=== PATIENT | female | born 2000 | race Caucasian/White ===

== ENCOUNTER 2024-11-13 14:42 | Inpatient (IN) | payer OTHER, SELFPAY ==
[2024-11-13] VITALS (79 sets, daily range): BP systolic 94–151; BP diastolic 47–122; PULSE 63–141; TEMP 36.8–37; O2SAT 94–100; BMI 28.0
[2024-11-13 16:00] LABS: Basophils Percent Auto 0.2 % (0.2-1.2); Eosinophils Absolute Auto 0.1 K/mm3 (0-0.3); Eosinophils Percent Auto 0.6 % (0-4.4); Hematocrit 32.8 % (37.0-47.0); Hemoglobin 11.5 g/dL (12.0-15.0); Immature Granulocyte Absolute 0.07 K/mm3 (0.00-0.031); Immature Granulocyte Percent A 0.6 % (0-0.5); Lymphocytes Absolute Auto 1.76 K/mm3 (0.9-3.2); Lymphocytes Percent Auto 14.1 % (18.3-44.2); Mean Corpuscular HGB Conc 35.1 g/dl (32-36); Mean Corpuscular Hemoglobin 30.6 pg (26-34); Mean Corpuscular Volume 87.2 fl (80-100); Mean Platelet Volume 11.5 fl (7.4-10.4); Monocytes Absolute Auto 1.1 K/mm3 (0.1-0.6); Monocytes Percent Auto 8.7 % (2.6-8.5); Neutrophils Absolute Auto 9.4 K/mm3 (1.3-6.7); Neutrophils Percent Auto 75.8 % (45.5-73.1); Platelet Count Result 180 k/mm3 (150-375); Red Blood Count 3.76 M/mm3 (4.2-5.4); Red Cell Distribution Width 13.2 % (11.5-14.5); White Blood Count 12.5 K/mm3 (4.5-10.0)
[2024-11-13 16:13] LABS: Alanine Aminotransferase 19 U/L (6-35); Albumin Level 3.4 g/dL (3.5-5.1); Alkaline Phosphatase 126 U/L (38-126); Anion Gap 7 mmol/L (4-12); Aspartate Amino Transferase 22 U/L (14-36); Bilirubin,Total 0.4 mg/dL (0.2-1.3); Blood Urea Nitrogen 7 mg/dL (7-17); Calcium 8.9 mg/dL (8.4-10.2); Carbon Dioxide 22 mmol/L (22-30); Chloride 106 mmol/L (98-107); Estimated Glomerular Filt Rate > 60; Glucose 76 mg/dL (65-110); Potassium 3.6 mmol/L (3.4-5.0); Sodium 135 mmol/L (137-145); Uric Acid 2.9 mg/dL (2.5-7.5)
[2024-11-13] MEDS: LACTATED RINGERS 1,000 ML 125 ML IV CONT ×2 (16:20→19:51)
[2024-11-13] MEDS: AMPICILLIN 2 GM/NS 100 ML 2 GM/100 ML BAG IVPB (16:21)
[2024-11-13 16:25] LABS: Rapid Plasma Reagin Non-Reactive (NonReactive)
--- NOTE | 2024-11-13 16:46 | LDADM ---
This patient, Eugenia Smith, was admitted to Labor/Delivery/Recovery 104 on 11/13/24 at 14:42. Plans for labor, pain management and were discussed with patient. Patient/family oriented to hospital policies and general routines including ID bracelet, bed and alarms, visiting hours, pain management, procedures, bathroom and other care routines, personal items, smoking policy, room service/diet and guest tray routines, security routines, and visiting hours. Patient/Family are encouraged to report perceived risks to care and to ask questions if they do not understand what they are told or what they should do. See OBIX for further documentation.
[2024-11-13 16:55] LABS: HIV 1/2 Ab P24 Ag Result Negative (Negative)
--- NOTE | 2024-11-13 17:08 | P.HP_ITS ---
H&P: HPI History of Present Illness Date/Time: 11/13/24 17:08 Chief Complaint: ruptured membranes at term Narrative: 24 year 1 para 0 last menstrual period was 02/15/2024, EDC is 11/21/2024 presents at 386 7th weeks gestation with spontaneous rupture prior to admission. appears unremarkable. She is negative for group B strep . her fluid is meconium stained Review of Systems Review of Systems: All systems reviewed & are unremarkable except as noted in HPI and below PMFSH Social History Social History Smoking status: Never smoker Second hand tobacco smoke exposure: No Substance use: never Do You Feel Safe in your Home?: Yes Lack of Transportation: No Lack of Food: Never True Current Housing: I Have Housing Concerned About Future Housing: No Difficulty Paying Gas/Electric Bills: No Difficulty Paying for Meds: No Currently Unemployed: No Education: High School Diploma/GED Difficulty w/ Childcare or Family Care: No Spiritual care concerns: No Meds Home Medications and Allergies Home Medications ?Medication ?Instructions ?Recorded ?Confirmed ?Type buspirone 5 mg tablet 5 mg PO ONCE 11/11/24 11/13/24 History sertraline 50 mg tablet (Zoloft) 50 mg PO DAILY 11/11/24 11/13/24 History Allergies Allergy/AdvReac Type Severity Reaction Status Date / Time ondansetron (From Zofran) Allergy Severe Anaphylaxis Verified 11/11/24 09:04 Vital Signs Vital Signs - 24 hr 11/13/24 16:01 11/13/24 16:30 Pulse Rate 84 81 Blood Pressure 147/88 H 147/96 H Exam Const: General: cooperative, healthy appearing and comfortable Nutritional Appearance: average body habitus Orientation/consciousness: oriented to person, oriented to place and oriented to time HENMT: Head: normal to inspection Resp: Effort & Inspection: normal respiratory effort Cardio: Rate: regular rate Rhythm: regular rhythm Heart sounds: S1 normal heart sound present and S2 normal heart sound present GI: Inspection: normal to inspection ( gravid soft uterus) : External Female Exam: normal external appearance Speculum Exam - Vagina: normal appearance of the vagina Speculum Exam - Cervix: normal appearance of the cervix ( cervix 2/50% with meconium-stained fluid. h eart tones reassuring) H&P: Results Labs Labs: Short CBC 11/13/24 Range/Units 15:43 WBC 12.5 H (4.5-10.0) K/mm3 Hgb 11.5 L (12.0-15.0) g/dL Hct 32.8 L (37.0-47.0) % Plt Count 180 (150-375) k/mm3 BMP 11/13/24 15:43 Sodium 135 L Potassium 3.6 Chloride 106 Carbon Dioxide 22 BUN 7 Creatinine 0.52 L Glucose 76 Calcium 8.9 Liver Function 11/13/24 Range/Units 15:43 Total Bilirubin 0.4 (0.2-1.3) mg/dL AST 22 (14-36) U/L ALT 19 (6-35) U/L Alkaline Phosphatase 126 (38-126) U/L Albumin 3.4 L (3.5-5.1) g/dL Assessment and Plan Assessment and plan (1) Term : Code(s): Z34.90 - Encounter for supervision of normal , unspecified, unspecified trimester Status: Acute (2) Spontaneous rupture of membranes: Status: Acute Plan spontaneous vaginal delivery is expected. She is an epidural candidate.
[2024-11-13] MEDS: OXYTOCIN 30 UNITS/NS 500 ML 30 UNITS/500 ML BAG IV CONT (17:16)
[2024-11-13 17:27] LABS: OBXCEM ROM Plus Positive (Negative)
[2024-11-13] MEDS: fentaNYL CITRATE INJ (*CRX) 100 MCG/2 ML VIAL 50 MCG IV PUSH (17:41)
--- NOTE | 2024-11-13 19:23 | WPDANESEPP ---
Anes - Eval Pre Procedure Procedure: labor pain managment Date/Time: 11/13/24 19:23 Surgeon: Brice Almodovar Preop Diagnosis: pain during labor Pre Op Diagnosis: ROM Patient Data Age: 24 Gender: F Height: 1.7 m Weight: 81.2 kg Last Vital Signs Temp 98.2 F 11/13/24 18:00 Pulse 85 11/13/24 18:31 BP 151/102 H 11/13/24 18:31 O2 Del Method Room Air 11/13/24 17:55 Allergies Allergy/AdvReac Type Severity Reaction Status Date / Time ondansetron (From Zofran) Allergy Severe Anaphylaxis Verified 11/11/24 09:04 Home Medications ?Medication ?Instructions ?Recorded ?Confirmed ?Type buspirone 5 mg tablet 5 mg PO ONCE 11/11/24 11/13/24 History sertraline 50 mg tablet (Zoloft) 50 mg PO DAILY 11/11/24 11/13/24 History Laboratory Tests 11/13/24 11/13/24 15:05 15:43 WBC 12.5 H K/mm3 (4.5-10.0) RBC 3.76 L M/mm3 (4.2-5.4) Hgb 11.5 L g/dL (12.0-15.0) Hct 32.8 L % (37.0-47.0) MCV 87.2 fl (80-100) MCH 30.6 pg (26-34) MCHC 35.1 g/dl (32-36) RDW 13.2 % (11.5-14.5) Plt Count 180 k/mm3 (150-375) MPV 11.5 H fl (7.4-10.4) Immature Gran % (Auto) 0.6 H % (0-0.5) Neut % (Auto) 75.8 H % (45.5-73.1) Lymph % (Auto) 14.1 L % (18.3-44.2) [place] % (Auto) 8.7 H % (2.6-8.5) Eos % (Auto) 0.6 % (0-4.4) Baso % (Auto) 0.2 % (0.2-1.2) Lymph # (Auto) 1.76 K/mm3 (0.9-3.2) [place] # (Auto) 1.1 H K/mm3 (0.1-0.6) Eos # (Auto) 0.1 K/mm3 (0-0.3) Baso # (Auto) 0.0 K/mm3 (0.0-0.1) Abs Immat Gran (auto) 0.07 H K/mm3 (0.00-0.031) Absolute Neuts (auto) 9.4 H K/mm3 (1.3-6.7) Absolute Nucleated RBC 0.000 K/mm3 (0.0-0.012) Nucleated RBC % 0.0 % (0.0-0.2) Sodium 135 L mmol/L (137-145) Potassium 3.6 mmol/L (3.4-5.0) Chloride 106 mmol/L (98-107) Carbon Dioxide 22 mmol/L (22-30) Anion Gap 7 mmol/L (4-12) BUN 7 mg/dL (7-17) Creatinine 0.52 L mg/dL (0.7-1.0) Estim Creat Clear Calc Not Reportable Estimated GFR > 60 (59 - ) Glucose 76 mg/dL (65-110) Uric Acid 2.9 mg/dL (2.5-7.5) Calcium 8.9 mg/dL (8.4-10.2) Total Bilirubin 0.4 mg/dL (0.2-1.3) AST 22 U/L (14-36) ALT 19 U/L (6-35) Alkaline Phosphatase 126 U/L (38-126) Total Protein 7.0 g/dL (6.3-8.2) Albumin 3.4 L g/dL (3.5-5.1) Membranes Rupture Rom plus positive (Negative) RPR Non-reactive (NonReactive) HIV 1&2 Ab/P24 Ag 4thGn Negative (Negative) Blood Type O Positive Antibody Screen Negative Patient hx anesthesia problems: none Family hx anesthesia problems: none Results Review: All pre-operative results and documents have been reviewed as part of the pre-operative evaluation. [facility] Past Medical History Medical History Bipolar 1 disorder Depression Anxiety Social History Social History Smoking status: Never smoker Second hand tobacco smoke exposure: No Substance use: never Do You Feel Safe in your Home?: Yes Lack of Transportation: No Lack of Food: Never True Current Housing: I Have Housing Concerned About Future Housing: No Difficulty Paying Gas/Electric Bills: No Difficulty Paying for Meds: No Currently Unemployed: No Education: High School Diploma/GED Difficulty w/ Childcare or Family Care: No Spiritual care concerns: No Exam Day of Procedure 11/13/24 19:23
[2024-11-13] MEDS: PROMETHAZINE HCL 25 MG/ML AMPUL 12.5 MG IV PUSH (19:36)
[2024-11-13] MEDS: AMPICILLIN 1 GM/NS 50 ML 1 GM/50 ML BAG IVPB (20:23)
[2024-11-14] VITALS (43 sets, daily range): BP systolic 111–185; BP diastolic 49–137; PULSE 68–162; RESP 16–18; TEMP 36.3–36.7; O2SAT 82–100
[2024-11-14] MEDS: AMPICILLIN 1 GM/NS 50 ML 1 GM/50 ML BAG IVPB (00:11)
--- NOTE | 2024-11-14 02:13 | P.PCNOB_ITS ---
OB - Vaginal Delivery Note Procedure Delivery date: 11/14/24 Induction method: None Delivery augmentation: Pitocin Delivery monitor: External FHT and External Uterine Route of delivery: Episiotomy description: None Laceration Description: Perineal - 1st Degree Delivery repair: vicryl Specimen: No Quantitative Blood Loss (ml): 62 Anesthesia type: Epidural Disposition: Floor Complications: No immediate complications Narrative: Admitted with spontaneous rupture membranes on 11/13/2024. Pitocin augmentation began she progressed an unremarkable 1st stage of labor with epidural anesthesia she pushed delivered head spontaneously in SARMAD position. Anterior posterior shoulder delivered spontaneously. Cord clamped x2 and cut infant warmer given Apgars of 8 [id number]. Cord blood was drawn. Placenta delivered intact spontaneously. Twenty of Pitocin placed IV to help firm the uterus. After inspecting lateral sidewall small midline sulcal tear was noted to did not extend a [id number] 0 Vicryl placed. QBL was 62cc. All sponge, needle, instrument counts were correct. [place] Baby Date of : 11/14/24 Time of : 02:02 Gestational Age by Date: 39 gender: Female presentation: vertex position: Left Occiput Anterior Placenta delivery description: Spontaneous Cord Vessel Description: 3 Vessels score one minute: 8 score five minutes: 9
--- NOTE | 2024-11-14 02:16 | P.DS_ITS ---
DS: Admitting Diagnosis Discharge Date 11/15/2024 Admitting Diagnosis Term DS: Discharge Diagnosis Discharge Diagnosis (1) Term : Code(s): Z34.90 - Encounter for supervision of normal , unspecified, unspecified trimester Status: Acute (2) Spontaneous rupture of membranes: Status: Acute DS: Summary Hospital Course Reason for hospitalization: patient was admitted on 11/13 24 with spontaneous rupture membranes and underwent spontaneous vaginal delivery at 2:02 a.m. on 09/28 Hospital Course: patient's hospital course unremarkable. She remained afebrile. She was up regular diet, ambulating, generally without. Time Spent with Patient Time attestation: Total time spent providing and/or coordinating discharge services: Exam Const: General: cooperative, healthy appearing and comfortable Nutritional Appearance: average body habitus Orientation/consciousness: oriented to person, oriented to place and oriented to time HENMT: Head: normal to inspection Resp: Effort & Inspection: normal respiratory effort Cardio: Rate: regular rate Rhythm: regular rhythm Heart sounds: S1 n ormal heart sound present and S2 normal heart sound present GI: Inspection: normal to inspection ( Fundus firm below umbilicus) DS: Data Data Completed and Pending Labs on day of discharge: Labs from last 24 hours 11/13/24 11/13/24 15:43 15:05 WBC 12.5 H RBC 3.76 L Hgb 11.5 L Hct 32.8 L MCV 87.2 MCH 30.6 MCHC 35.1 RDW 13.2 Plt Count 180 MPV 11.5 H Immature Gran % (Auto) 0.6 H Neut % (Auto) 75.8 H Lymph % (Auto) 14.1 L [place] % (Auto) 8.7 H Eos % (Auto) 0.6 Baso % (Auto) 0.2 Lymph # (Auto) 1.76 [place] # (Auto) 1.1 H Eos # (Auto) 0.1 Baso # (Auto) 0.0 Abs Immat Gran (auto) 0.07 H Absolute Neuts (auto) 9.4 H Absolute Nucleated RBC 0.000 Nucleated RBC % 0.0 Sodium 135 L Potassium 3.6 Chloride 106 Carbon Dioxide 22 Anion Gap 7 BUN 7 Creatinine 0.52 L Estim Creat Clear Calc Not Reportable Estimated GFR > 60 Glucose 76 Uric Acid 2.9 Calcium 8.9 Total Bilirubin 0.4 AST 22 ALT 19 Alkaline Phosphatase 126 Total Protein 7.0 Albumin 3.4 L Membranes Rupture Rom plus positive RPR Non-reactive HIV 1&2 Ab/P24 Ag 4thGn Negative Blood Type O Positive Antibody Screen Negative Discharge Plan Discharge Attending physician on discharge: Dominick Balbuena Discharging Clinician: Dominick Balbuena Activity: may shower, no straining, may drive after 2 weeks and pelvic rest Diet: heart healthy Wound Care Instructions: follow printed instructions Patient Language: Japanese Follow-up/Referrals: Dominick Balbuena MD [Physician] - Discharge Medications: No Action buspirone 5 mg tablet 5 mg PO ONCE sertraline [Zoloft] 50 mg tablet 50 mg PO DAILY Date of admission: 11/13/24 14:42 Primary Care Provider: PHYSICIAN NOT ON STAFF,NONSTAFF Admitting Provider: Luan Morales Attending physician on admission: Luan Morales Condition: Stable
[2024-11-14] MEDS: OXYTOCIN 30 UNITS/NS 500 ML 30 UNITS/500 ML BAG 125 UNITS IV CONT (02:34)
[2024-11-14] MEDS: IBUPROFEN 600 MG TABLET PO ×3 (04:14→18:50)
[2024-11-14] MEDS: ACETAMINOPHEN 325 MG TABLET 650 MG PO ×3 (04:14→18:51)
--- NOTE | 2024-11-14 07:21 | WPDANLDPN2 ---
Anes-Prog Note L&D Date/Time: 11/14/24 07:21 Comfortable throughout: labor and delivery Neuraxial method: epidural Epidural/Spinal procedure site: clean & non-tender Neuro status: Neuro function grossly intact. Cardiovascular status: normal Respiratory status: normal Airway patency: baseline Mental status: baseline Post-Op hydration status: normal Vital Signs: Last Vital Signs Temp 98.4 F 11/13/24 23:30 Pulse 72 11/14/24 07:15 BP 125/75 11/14/24 07:15 Pulse Ox 96 11/14/24 02:01 O2 Del Method Room Air 11/13/24 17:55 Pain score (VAS): 0 I/O: Intake & Output 11/13/24 11/13/24 11/14/24 15:59 23:59 07:59 Intake Total 1150 500 Output Total 300 162 Balance 850 338 Post-procedural complaints: none Patient feedback: Patient satisfied with anesthetic care.
--- NOTE | 2024-11-14 10:10 | PC.NURSE ---
Patient transferred to post room #287 per wheelchair from labor and delivery. Support person present. Oriented to unit, room, information board, rooming in, admission packet and security measures. Patient verbalizes understanding.
--- NOTE | 2024-11-14 10:40 | PC.NURSE ---
Breast pump provided due to [separation, infnat in level 2]. Instructions given on cleaning, care, usage, that there should be no pain, pumping schedule for milk production, collection, and storage of human milk. Patient was assessed for correct placement, flange size (24 mm), to pump for comfort and nipple stretching/stimulation for adequate milk production every 3 hours (8 times in 24 hours).?Mother voiced understanding of the education shared along with mom/baby guide and the pump measurement, flange fit handout for additional resource information. Reported to the Primary RN.
[2024-11-14] MEDS: MULTIVIT/MIN/PREN/FOL AC/IRON TABLET 1 TAB PO (11:31)
[2024-11-14] MEDS: LANOLIN (LANSINOH) 7.5 GM CREAM 1 APPLIC TOPICAL (11:32)
--- NOTE | 2024-11-14 16:35 | PC.NURSE ---
Checked with mother about how pumping was going. She was able to go to the level 2 nursery and breastfeed baby at the last feeding time. Mom has a lot of doubt about her ability to produce adequate milk. Educated on milk production, frequent breast stimulation and /pumping expectations in the early period. Mom was given two handouts on pumping along with the admission packet. She declines having any other questions or concerns at this time. Reported to primary RN.
[2024-11-15] MEDS: IBUPROFEN 600 MG TABLET PO ×2 (02:57→08:30)
[2024-11-15] MEDS: ACETAMINOPHEN 325 MG TABLET 650 MG PO ×2 (02:57→08:30)
[2024-11-15 04:37] LABS: Hematocrit 28.8 % (37.0-47.0); Hemoglobin 9.9 g/dL (12.0-15.0)
--- NOTE | 2024-11-15 07:39 | P.PNOB_ITS ---
OB - PN: Subj Subjective Date/time seen: 11/15/24 07:39 Patient comments: no complaints, pain well controlled and tolerating diet [place] feeding status: exclusively breast feeding OB - PN: Obj Data Labs 11/15/24 04:29 11/13/24 15:43 Labs: Laboratory Results - last 24 hr 11/15/24 04:29 Hgb 9.9 L Hct 28.8 L OB - PN A/P Assessment and Plan (1) Term : Code(s): Z34.90 - Encounter for supervision of normal , unspecified, unspecified trimester Status: Acute (2) Spontaneous rupture of membranes: Status: Acute (3) : Code(s): Z34.90 - Encounter for supervision of normal , unspecified, unspecified trimester Status: Acute Plan routine care Time Spent With Patient Time: Total time spent is greater than 50% in coordination of care (as documented) at patient's floor/unit and/or counseling patient: Review of Systems 2 Review of Systems: All systems reviewed & are unremarkable except as noted in HPI and below Exam 2 Const: General: cooperative, healthy appearing and comfortable Nutritional Appearance: average body habitus Orientation/consciousness: oriented to person, oriented to place and oriented to time HENMT: Head: normal to inspection Resp: Effort & Inspection: normal respiratory effort Cardio: Rate: regular rate Rhythm: regular rhythm Heart sounds: S1 normal heart sound present and S2 normal heart sound present GI: Inspection: normal to inspection (fundus firm)
[2024-11-15] MEDS: DOCUSATE SODIUM 100 MG CAPSULE PO (08:30)
[2024-11-15] MEDS: POLYSACCHARIDE IRON COMPLEX 150 MG CAPSULE PO (08:30)
[2024-11-15] MEDS: MULTIVIT/MIN/PREN/FOL AC/IRON TABLET 1 TAB PO (08:30)
[2024-11-15 08:35] VITALS: BP 119/80; PULSE 65; RESP 16; TEMP 36.3
[2024-11-17 11:39] VITALS: BP 128/82; PULSE 91; RESP 18; TEMP 37.1; O2SAT 100
--- NOTE | 2024-11-17 12:14 | P.DS_ITS ---
DS: Admitting Diagnosis Discharge Date 11/15/24 Admitting Diagnosis Intrauterine growth restriction DS: Summary Time Spent with Patient Time attestation: Total time spent providing and/or coordinating discharge services: Discharge Plan Discharge Attending physician on discharge: Dominick Balbuena Consulting providers: Marta Cagle Discharging Clinician: Dominick Balbuena Patient Disposition: Home, Self-Care Activity: may shower, no straining, may drive after 2 weeks and pelvic rest Diet: heart healthy Wound Care Instructions: follow printed instructions Discharge Instructions: Education: Mom and Baby Guide Given to: Mother Follow-Up: Call your delivering provider's office for an appointment to be seen in: call and make an appointment Mom and baby should come to the [facility] for the follow-up appointment. Appointment Date/Time: November 17, 2024 at 11:00 am What to expect at your follow-up visit: Blood Pressure Check Physical Assessment Call [phone] if you are unable to keep your appointment time. BREAST CARE: * Wear a snug supportive bra. * For engorgement discomfort: Breast Feeding: * Apply warm moist washcloths * Express milk as needed to relieve engorgement * Wear loose clothing Bottle Feeding: * May apply ice packs * For sore nipples: * Identify correct latch-on * Apply warm moist washcloths before and after nursing * Air dry nipples after nursing * May apply Lansinoh cream to nipples EPISIOTOMY/PERINEAL CARE: * Until bleeding stops, use your arin bottle after urinating * Change your pad frequently throughout the day * You may take sitz baths several times a day (fill your bathtub with warm water and soak for 20 minutes.) Do NOT bathe in the water * No tub baths until seen by your physician - You may shower ACTIVITY: * Rest as much as possible. * Do not exercise or lift anything heavier than your baby (such as laundry or other children.) * Avoid stairs or driving as much as possible. * Do not put anything into the vagina. No douching, tampons, or sexual activity until seen by physician. NOTIFY PHYSICIAN IF YOU HAVE ANY QUESTIONS OR IF ANY OF THE FOLLOWING SYMPTOMS OCCUR: * If your episiotomy or incision becomes red, swollen, or more painful than what you have experienced in the hospital. * If your vaginal bleeding becomes foul smelling. * If your vaginal bleeding becomes more heavy than a period or if your bleeding changes from pink to bright red. However, you may pass an occasional walnut- sized clot once or twice for the first week . * If you experience a sharp, shooting pain in you calves. * If you discover a hard, reddened area on your breast or if you experience flu- like symptoms. DIET: * Eat regular, well-balanced meals. * Drink plenty of fluids daily. If , drink to thirst. Patient Language: Niuean Follow-up/Referrals: Dominick Balbuena MD [Physician] - Discharge Medications: No Action buspirone 5 mg tablet 5 mg PO ONCE sertraline [Zoloft] 50 mg tablet 50 mg PO DAILY Date of admission: 11/13/24 14:42 Primary Care Provider: PHYSICIAN NOT ON STAFF,NONSTAFF Admitting Provider: Dominick Balbuena Attending physician on admission: Dominick Balbuena Condition: Stable
== END 2024-11-15 15:12 | disposition home or self-care (01) | DRG 807 ==
LOC: ANHLDR 11-17 09:24 → ANHOB2 11-17 09:24
PROVIDERS: Admitting Provider Obstetrics & Gynecology; Visit Provider Obstetrics & Gynecology
DX: O77.0 Labor and delivery complicated by meconium in amniotic fluid (principal); Z37.0 Single live birth; O70.0 First degree perineal laceration during delivery; Z3A.39 39 weeks gestation of pregnancy
CPT/HCPCS: 36415; 80053; 84112; 84550; 85014; 85018; 85025; 86592; 86703; 86850; 86900; 86901; A9270; G0432; J0290; J2550; J2590; J2795; J3010; J7120